=== PATIENT | female | born 2005 | race African-American/Black ===

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

== ENCOUNTER 2025-01-23 05:24 | Emergency (ER) | payer OTHER ==
[2025-01-23] MEDS ORDERED: Ondansetron PF 4 MG/2 ML Vial ONE (05:54)
[2025-01-23] MEDS ORDERED: Dexamethasone 10 MG/ML VIAL ONE (05:54)
[2025-01-23] MEDS ORDERED: Ketorolac Tromethamine 30 MG (1 mL) VIAL ONE (05:54)
[2025-01-23 06:05] LABS: #Basophils 0.07 10x3/uL (0.0-0.2); #Eosinophils 0.13 10x3/uL (0.0-0.5); #Monocytes 0.46 10x3/uL (0.0-1.1); #Neutrophils 6.68 10x3/uL (1.5-8.4); %Basophils 0.8 % (0.0-2.0); %Eosinophils 1.5 % (0.0-6.0); %Lymphocytes 16.3 % (18.0-47.0); %Monocytes 5.2 % (0.0-10.0); %Neutrophils 75.9 % (40.0-75.0); Hematocrit 42.7 % (34.9-44.5); Hemoglobin 14.2 g/dL (12.0-15.5); Mean Corpuscular Hemoglobin 26.3 pg (27.0-33.0); Mean Corpuscular Volume 79.1 fL (81.6-98.3); Platelet Count 290 10x3/uL (150-450); Red Blood Cell (RBC) Count 5.40 10x6/uL (3.90-5.03); White Blood Cell (WBC) Count 8.80 10x3/uL (3.5-10.5)
[2025-01-23 06:26] LABS: Troponin I Less than 0.010 ng/mL (< 0.028)
[2025-01-23 06:35] LABS: ALT (SGPT) 12 U/L (Less than 34); AST (SGOT) 23 U/L (11-34); Albumin 4.8 g/dL (3.1-4.5); Alkaline Phosphatase 50 U/L (40-100); Anion Gap 19 mmol/L (10-20); BUN (Urea Nitrogen) 12 mg/dL (8.4-21.0); Bilirubin, Total 2.0 mg/dL (0.3-1.2); Calc. Creatinine Clearance 0 mL/min (70-130); Calcium 9.9 mg/dL (7.8-10.44); Carbon Dioxide 19 mmol/L (22-29); Chloride 105 mmol/L (98-107); Globulin 3.9 g/dL (2.4-3.5); Glucose 99 mg/dL (70-105); Potassium 3.9 mmol/L (3.5-5.1); Sodium 139 mmol/L (136-145)
== END 2025-01-23 08:15 | disposition home or self-care (01) ==
LOC: CSHERS 05:24
DX: J45.901 Unspecified asthma with (acute) exacerbation (principal)
CPT/HCPCS: 71045; 80053; 84484; 85025; 87428; 93005; 94640; 94760; 96374; 96375; J1100; J1885; J2405; J7620